=== PATIENT | female | born 1975 | race Caucasian/White ===

== ENCOUNTER 2018-06-20 09:20 | Day surgery (SDC) | payer OTHER ==
[~2018-06-20 09:20] MED LIST: CEFAZOLIN 2 GM/50 ML (PMX) 50 ML IVPB; SOD CHLORIDE 0.9% 1,000 ML IV
[2018-06-20 10:20] LABS: ADD MAN DIFF? NO
[2018-06-20 10:24] LABS: BASOPHILS % 0.1 % (0.0-2.0); EOSINOPHILS # 0.1 10^3/ul (0.0-0.5); EOSINOPHILS % 0.9 % (0.0-7.0); HEMATOCRIT 37.9 % (37.0-47.0); HEMOGLOBIN 12.5 g/dl (12.0-16.0); LYMPHOCYTES # 2.7 10^3/ul (0.8-2.9); LYMPHOCYTES % 35.2 % (15.0-51.0); MEAN CORPUSCULAR HEMOGLOBIN 29.4 pg (29.0-33.0); MEAN CORPUSCULAR VOLUME 89.2 fl (82.0-101.0); MEAN PLATELET VOLUME 10.3 fl (7.4-10.4); MONOCYTE # 0.5 10^3/ul (0.3-0.9); MONOCYTES % 6.3 % (0.0-11.0); NEUTROPHIL # 4.4 10^3/ul (1.6-7.5); NEUTROPHILS % 57.1 % (39.0-77.0); PLATELET COUNT 277 10^3/UL (140-415); RED BLOOD COUNT 4.25 10^6/ul (4.20-5.40); RED CELL DISTRIBUTION WIDTH 12.7 % (11.5-14.5)
[2018-06-20 10:24] LABS: WHITE BLOOD COUNT 7.7 10^3/ul (4.8-10.8)
[2018-06-20 10:43] LABS: INR 0.83; PROTIME 11.5 Sec (11.9-14.9); PT RATIO 0.9
[2018-06-20 10:44] LABS: PARTIAL THROMBOPLASTIN TIME 27.7 Sec (23.0-35.0)
[2018-06-20 10:47] LABS: ALANINE AMINOTRANSFERASE 28 IU/L (13-69); ALBUMIN 4.1 g/dl (3.3-4.9); ALBUMIN/GLOBULIN RATIO 1.02; ALKALINE PHOSPHATASE 122 IU/L (42-121); ANION GAP 7 (5-13); ASPARTATE AMINO TRANSFERASE 28 IU/L (15-46); BILIRUBIN,INDIRECT 0.3 mg/dl (0-1.1); BILIRUBIN,TOTAL 0.3 mg/dl (0.2-1.3); BLOOD UREA NITROGEN 12 mg/dl (7-20); CALCIUM 9.9 mg/dl (8.4-10.2); CARBON DIOXIDE 28 mmol/L (21-31); CHLORIDE 109 mmol/L (97-110); CREATININE 0.63 mg/dl (0.44-1.00); Estimated GFR > 60 mL/min (>60); GLUCOSE 112 mg/dl (70-220); POTASSIUM 4.3 mmol/L (3.5-5.1); SODIUM 144 mmol/L (135-144); TOTAL PROTEIN 8.1 g/dl (6.1-8.1)
[2018-06-20] MEDS ORDERED: MIDAZOLAM 1 MG/ML 2 ML INJ (13:17)
[2018-06-20] MEDS ORDERED: LIDOCAINE 2% (SDV) 5 ML INJ (13:50)
[2018-06-20] MEDS ORDERED: PROPOFOL 20 ML (13:50)
[2018-06-20] MEDS ORDERED: GLYCOPYRROLATE 0.4 MG INJ (13:50)
[2018-06-20] MEDS ORDERED: NEOSTIGMINE 3 MG/3 ML SYRINGE (13:50)
[2018-06-20] MEDS ORDERED: ROCURONIUM 50 MG INJ (13:50)
[2018-06-20] MEDS ORDERED: CEFAZOLIN 1 GM INJ (13:52)
[2018-06-20] MEDS ORDERED: ONDANSETRON 4 MG INJ (13:53)
[2018-06-20] MEDS ORDERED: HYDROCODONE/APAP (5/325) TAB PO (14:00)
[2018-06-20] MEDS: BUPIVACAINE 0.25% (MPF) 30 ML INJ (14:17)
[2018-06-20] MEDS: HYDROmorphONE 1 MG/5 ML IV SYRINGE IV ×3 (14:24→14:44)
[2018-06-20] MEDS ORDERED: MEPERIDINE 25 MG INJ IV (14:30)
[2018-06-20] MEDS ORDERED: ONDANSETRON 4 MG INJ IV (14:30)
[2018-06-20] MEDS ORDERED: DIPHENHYDRAMINE 50 MG INJ IV (14:30)
[2018-06-20] MEDS ORDERED: METOCLOPRAMIDE 10 MG INJ IV (14:30)
[2018-06-20] MEDS ORDERED: FENTAnyl 50 MCG/ML VIAL IV (14:30)
[2018-06-20] MEDS: KETOROLAC 30 MG INJ IV (14:52)
== END 2018-06-20 17:00 | disposition home or self-care (01) ==
LOC: SDS 09:20
DX: K80.10 Calculus of gallbladder with chronic cholecystitis without obstruction (principal)
CPT/HCPCS: 47562; 80053; 84703; 85025; 85610; 85730; 88304